=== PATIENT | female | born 1965 | race Caucasian/White ===

== ENCOUNTER 2017-12-12 11:05 | Emergency (ER) | payer SELFPAY ==
[2017-12-12] MEDS ORDERED: HUMULIN R 100 UNIT/ML VIAL SC ONE (11:06)
[2017-12-12] MEDS ORDERED: 0.9 % SODIUM CHLORIDE 1,000 ML BAG IV ONE (11:23)
[2017-12-12] MEDS ORDERED: ONDANSETRON HCL IV 4 MG/2 ML VIAL IV ONE (11:23)
[2017-12-12 11:33] LABS: HEMATOCRIT 43.9 % (35.0-47.0); MEAN CELL VOLUME 94.8 fl (81-97); MEAN CORPUSCULAR HEMOGLOBIN 30.2 pg (27-33); MEAN CORPUSCULAR HGB CONC 31.9 g/dl (32-36); MEAN PLATELET VOLUME 11.4 fl (7.4-10.4); PLATELET COUNT 327 K/uL (130-400); RED BLOOD COUNT 4.63 M/uL (3.80-5.40); RED CELL DISTRIBUTION WIDTH 14.5 % (11.5-14.5)
--- NOTE | 2017-12-12 11:33 | Emergency Department Record ---
History of Present Illness - General Chief complaint: Hypergylcemia Stated complaint: NO INSULIN SINCE MONDAY Time Seen by Provider: 12/12/17 11:12 Source: Patient, Family Mode of Arrival: Wheelchair Limitations: No limitations - History of Present Illness Initial comments: The patient is here due to not feeling well since last night. She is an Insulin dependent Diabetic and ran out of her Insulin 3 days ago. Last evening she has the onset of nausea, vomiting, and loose stools. She also is having some upper AP and back pain at times. The patient did take her blood sugar this AM and it read "high". She has had some ELIOT with the nausea and vomiting but no CP or RICCI. MD Complaint: Generalized weakness Onset/Timin -: Days(s) Severity: Severe Severity scale (1-10): 9 Quality: Sharp Consistency: Constant Improves with: None Worsens with: None Associated Symptoms: Loss of appetite, Nausea/vomiting, Shortness of breath - Related Data Home Medications Medication Instructions Recorded Confirmed Last Taken Dapagliflozin Propanediol [Farxiga] 5 mg PO DAILY 12/12/17 12/12/17 Unknown Insulin Aspart [Novolog Flexpen] 1 unit SQ DAILY 12/12/17 12/12/17 Unknown Insulin Degludec [Tresiba 1 unit SQ DAILY 12/12/17 12/12/17 Unknown Flextouch U-200] Propranolol HCl [Propranolol HCl 120 mg PO DAILY 12/12/17 12/12/17 Unknown ER] Simvastatin 20 mg PO DAILY 12/12/17 12/12/17 Unknown Allergies Allergy/AdvReac Type Severity Reaction Status Date / Time Sulfa (Sulfonamide Allergy HIVES Verified 12/12/17 11:21 Antibiotics) Travel Screening - Travel/Exposure Within Last 30 Days Have you traveled within the last 30 days?: No Review of Systems Constitutional: Denies: Chills, Fever Eyes: Denies: Eye discharge ENT: Denies: Congestion Respiratory: Reports: Dyspnea. Denies: Cough Cardiovascular: Denies: Arrhythmia, Chest pain Endocrine: Reports: Fatigue Gastrointestinal: Reports: Abdominal pain, Diarrhea, Nausea, Vomiting Genitourinary: Denies: Dysuria Musculoskeletal: Reports: Back pain Skin: Denies: Bruising Neurological: Reports: Abnormal gait Past Medical History - SOCIAL HISTORY Smoking Status: Current every day smoker Alcohol Use: Rare Drug Use: None - RESPIRATORY Hx Respiratory Disorders: No - CARDIOVASCULAR Hx Cardio Disorders: No - NEURO Hx Neuro Disorders: No - GI Hx GI Disorders: No - Hx Genitourinary Disorders: No - ENDOCRINE Hx Endocrine Disorders: Yes Hx Diabetes: Yes (Type 2) - MUSCULOSKELETAL Hx Musculoskeletal Disorders: No - PSYCH Hx Psych Problems: No - HEMATOLOGY/ONCOLOGY Hx Hematology/Oncology Disorders: No Family Medical History Any Significant Family History?: No Physical Exam - General General Appearance: Alert, Cooperative, Mild distress (due to fast breathing and not feeling well.) - Head Head exam: Atraumatic, Normocephalic - Eye Eye exam: Normal appearance, PERRL, EOMI - Neck Neck exam: Normal inspection, Full ROM. negative: Tenderness - Respiratory Respiratory exam: Normal lung sounds bilaterally. negative: Respiratory distress - Cardiovascular Cardiovascular Exam: Regular rate, Normal rhythm, Normal heart sounds - GI/Abdominal GI/Abdominal exam: Soft, Tenderness (There is mild upper abdominal tenderness.) . negative: Rebound, Rigid - Extremities Extremities exam: Normal inspection, Full ROM, Normal capillary refill. negative: Tenderness - Neurological Neurological exam: Alert. negative: Altered, Motor sensory deficit - Skin Skin exam: negative: Rash Course Vital Signs 12/12/17 11:07 Pulse Rate 85 Respiratory 28 H Rate Blood Pressure 138/60 Pulse Ox 100 - Reevaluation(s) Reevaluation #1: The patient is doing a little better at this time. Her breathing has slightly slowed and she is more comfortable. I did discuss the fact she is in severe DKA and will need an ICU admission. The patient and fiance did pick [facility] for admission so we will contact them. 12/12/17 11:58 Reevaluation #2: The patient is doing a little better and appears more comfortable. I did discuss the case with Dr. Robins in the ICU at [facility] and he is aware of the transfer. I also did discuss the case with Dr. Light for [facility] and he does accept the patient for admission. Per Dr. Robins we will decrease her IVF to 500cc's/hr and lower her Insulin drip to 2 unis/hr. We also will push 2 amps of Bicarb slowly. 12/12/17 12:24 Reevaluation #3: The patient continues to continually slowly improve. We will order a repeat BMP at this time. 12/12/17 13:24 Medical Decision Making - Management Options MDM Management: Additional Work-up Planned (e.g. ADM/Transfer/OP Study) - Data Complexity MDM Data: Labs Ordered and/or Reviewed, X-Ray Ordered and/or Reviewed - Lab Data Result diagrams: 12/12/17 11:20 12/12/17 13:25 - EKG Data -: EKG Interpreted by Me EKG: Abnormal EKG (Peaked T waves. Neg for ischemia.) - Radiology Data Radiology results: Report reviewed (CXR: Neg) Critical Care Time Critical Care Time: Yes Total Critical Care Time: 50 Disposition Disposition: Transfer Clinical Impression: DKA (diabetic ketoacidoses) Qualifiers: Diabetes mellitus type: other specified (including XAVI) Diabetes mellitus complication detail: without coma Qualified Code(s): E13.10 - Other specified diabetes mellitus with ketoacidosis without coma Disposition: Acute Care Hospital Transfer Transfer To: [facility] Reason For Transfer: ICU Accepting Physician: Kuldeep Time Discussed w/Accepting Physician: 12:27 Condition: (2) Stable Forms: Patient Portal Access Time of Disposition: 12:27 Quality - Quality Measures Quality Measures: N/A - Blood Pressure Screening View Details: Yes Does Patient Have Any of the Following: No Blood Pressure Classification: Normal BP Reading Systolic Measurement: 98 Diastolic Measurement: 60 Screening for High Blood Pressure: < Normal BP, F/U Not Required > [G8783]
[2017-12-12 11:37] LABS: WHITE BLOOD COUNT W/O DIFF 22.1 K/uL (4.2-12.2)
[2017-12-12 11:46] LABS: BLOOD UREA NITROGEN 27 mg/dL (6-20); EST GLOMERULAR FILTRATION RATE 28 mL/min; TOTAL PROTEIN 7.7 g/dL (6.6-8.7)
[2017-12-12 11:51] LABS: ALBUMIN 4.6 g/dL (4.0-5.0); ALKALINE PHOSPHATASE 118 U/L (35-104); ALT/SGPT 20 U/L (<33); AST/SGOT 17 U/L (10.0-35.0); LIPASE 69 U/L (13-60)
[2017-12-12] MEDS ORDERED: HUMULIN R 100 UNIT/ML VIAL IV ONE (11:51)
[2017-12-12] MEDS ORDERED: 0.9 % SODIUM CHLORIDE 1000ML 1,000 ML IV ONE ×2 (11:52→12:20)
[2017-12-12 11:53] LABS: ACETONE,SERUM POSITIVE (NEGATIVE)
[2017-12-12 11:54] LABS: BILIRUBIN,DIRECT < 0.2 mg/dL (0-0.3)
[2017-12-12] MEDS ORDERED: INSULIN REGULAR, HUMAN 100 UNIT in 0.9 % SODIUM CHLORIDE 100ML 100 ML IV SCH ×4 (12:00→12:30)
[2017-12-12 12:06] LABS: GLUCOSE,RANDOM 857 mg/dL (74-109)
[2017-12-12 12:07] LABS: CREATINE PHOSPHOKINASE 68 U/L (26-192)
[2017-12-12 12:08] LABS: CKMB 1.6 ng/mL (<3.77)
[2017-12-12] MEDS ORDERED: SODIUM BICARBONATE 50MEQ SYRINGE IVP ONE ×2 (12:16→12:17)
[2017-12-12 13:16] LABS: URINE APPEARANCE CLEAR; URINE BILIRUBIN NEGATIVE (NEGATIVE); URINE BLOOD SMALL (NEGATIVE); URINE COLOR YELLOW; URINE LEUKOCYTE ESTERASE NEGATIVE (NEGATIVE); URINE NITRITE NEGATIVE (NEGATIVE); URINE PROTEIN TRACE (NEGATIVE); URINE UROBILINOGEN 0.2 E.U./dL (0.20 - 1.00)
[2017-12-12 13:22] LABS: URINE GLUCOSE (UA) >=1000 mg/dL (NEGATIVE); URINE KETONE 80 mg/dL (NEGATIVE)
[2017-12-12 13:25] LABS: URINE EPITHELIAL CELLS 0 - 2 (FEW); URINE RBC 0 - 2 (NONE SEEN); URINE WBC NONE SEEN (0-2/hpf)
[2017-12-12 14:06] LABS: CREATININE 1.6 mg/dL (0.5-0.9)
== END 2017-12-12 13:55 | disposition short-term general hospital (02) ==
LOC: ER 11:05
DX: E09.10 Drug or chemical induced diabetes mellitus with ketoacidosis without coma (principal); T38.3X6A Underdosing of insulin and oral hypoglycemic [antidiabetic] drugs, initial encounter; R11.2 Nausea with vomiting, unspecified; R06.02 Shortness of breath; R10.10 Upper abdominal pain, unspecified; R53.1 Weakness; R19.7 Diarrhea, unspecified; M54.9 Dorsalgia, unspecified; Z79.4 Long term (current) use of insulin; F17.210 Nicotine dependence, cigarettes, uncomplicated
CPT/HCPCS: 99291 ×2; 96365; 96366; 96375; 96361; 99292; 82550; 82800; 83690; 80076; 82553; 80048; 81001; 82009; 84484; 85027; 71045; J2405; J1815; J7030

== ENCOUNTER 2018-11-10 16:53 | Emergency (ER) | payer OTHER ==
--- NOTE | 2018-11-10 16:59 | Emergency Department Record ---
History of Present Illness - General Chief complaint: Extremity Problem Stated complaint: LT ANKLE RT KNEE INJURY Time Seen by Provider: 11/10/18 16:57 Source: Patient, RN notes reviewed Mode of Arrival: Wheelchair - History of Present Illness Initial comments: step in a hole at work yesterday and she has pain in the right knee and left ankle. Onset/Timin -: Days(s) - Related Data Previous Rx's Medication Instructions Recorded Hydrocodone/Acetaminophen [[place] 1 each PO Q6HR #12 tablet 11/10/18 5-325 Tablet] Allergies Allergy/AdvReac Type Severity Reaction Status Date / Time Sulfa (Sulfonamide Allergy HIVES Verified 11/10/18 17:00 Antibiotics) Review of Systems Reviewed: No additional complaints except as noted below Constitutional: Reports: As per HPI. Denies: Chills, Fever, Malaise, Night sweats, Weakness, Weight change Eyes: Reports: As per HPI. Denies: Eye discharge, Eye pain, Photophobia, Vision change ENT: Reports: As per HPI. Denies: Congestion, Dental pain, Ear pain, Epistaxis, Hearing loss, Throat pain Respiratory: Reports: As per HPI. Denies: Cough, Dyspnea, Hemoptysis, Stridor, Wheezes Cardiovascular: Reports: As per HPI. Denies: Arrhythmia, Chest pain, Dyspnea on exertion, Edema, Murmurs, Orthopnea, Palpitations, Paroxysmal nocturnal dyspnea, Rheumatic Fever, Syncope Endocrine: Reports: As per HPI. Denies: Fatigue, Heat or cold intolerance, Polydipsia, Polyuria Gastrointestinal: Reports: As per HPI. Denies: Abdominal pain, Constipation, Diarrhea, Hematemesis, Hematochezia, Melena, Nausea, Vomiting Genitourinary: Reports: As per HPI. Denies: Abnormal menses, Discharge, Dyspareunia, Dysuria, Frequency, Hematuria, Incontinence, Retention, Urgency Musculoskeletal: Reports: As per HPI, Arthralgia, Other (right ankle and left ankle pain). Denies: Back pain, Gout, Joint swelling, Myalgia, Neck pain Skin: Reports: As per HPI. Denies: Bruising, Change in color, Change in hair/nails, Lesions, Pruritus, Rash Neurological: Reports: As per HPI. Denies: Abnormal gait, Confusion, Headache, Numbness, Paresthesias, Seizure, Tingling, Tremors, Vertigo, Weakness Psychiatric: Reports: As per HPI. Denies: Anxiety, Auditory hallucinations, Depression, Homicidal thoughts, Suicidal thoughts, Visual hallucinations Hematological/Lymphatic: Reports: As per HPI. Denies: Anemia, Blood Clots, Easy bleeding, Easy bruising, Swollen glands Past Medical History - SOCIAL HISTORY Smoking Status: Current every day smoker Drug Use: None - RESPIRATORY Hx Respiratory Disorders: No - CARDIOVASCULAR Hx Cardio Disorders: No - NEURO Hx Neuro Disorders: No - GI Hx GI Disorders: No - Hx Genitourinary Disorders: No - ENDOCRINE Hx Endocrine Disorders: Yes Hx Diabetes: Yes (Type 2) - MUSCULOSKELETAL Hx Musculoskeletal Disorders: No - PSYCH Hx Psych Problems: No - HEMATOLOGY/ONCOLOGY Hx Hematology/Oncology Disorders: No Physical Exam - General General Appearance: Alert, Oriented x3, Cooperative, No acute distress - Head Head exam: Normal inspection - Eye Eye exam: Normal appearance, PERRL Pupils: Normal accommodation - ENT ENT exam: Normal exam, Mucous membranes moist, Normal external ear exam, Normal orophraynx, TM's normal bilaterally Ear exam: Normal external inspection. negative: External canal tenderness Nasal Exam: Normal inspection. negative: Discharge, Sinus tenderness Mouth exam: Normal external inspection, Tongue normal Teeth exam: Normal inspection. negative: Dental caries Throat exam: Normal inspection. negative: Tonsillar erythema, Tonsillar exudate - Neck Neck exam: Normal inspection, Full ROM. negative: Tenderness - Respiratory Respiratory exam: Normal lung sounds bilaterally. negative: Respiratory distress - Cardiovascular Cardiovascular Exam: Regular rate, Normal rhythm, Normal heart sounds - GI/Abdominal GI/Abdominal exam: Soft, Normal bowel sounds. negative: Tenderness - Rectal Rectal exam: Deferred - exam: Deferred - Extremities Extremities exam: Normal capillary refill, Tenderness (pain in the right knee and left ankle) - Back Back exam: Reports: Normal inspection, Full ROM. Denies: Muscle spasm, Rash noted, Tenderness - Neurological Neurological exam: Alert, Normal gait, Oriented X3, Reflexes normal - Psychiatric Psychiatric exam: Normal affect, Normal mood - Skin Skin exam: Dry, Intact, Normal color, Warm Medical Decision Making - Data Complexity MDM Data: X-Ray Ordered and/or Reviewed (fibular fracture, knee negative) Disposition Clinical Impression: Right knee sprain Qualifiers: Encounter type: initial encounter Involved ligament of knee: medial collateral ligament Qualified Code(s): S83.411A - Sprain of medial collateral ligament of right knee, initial encounter Ankle fracture Qualifiers: Encounter type: initial encounter Fracture type: closed Laterality: left Qualified Code(s): S82.892A - Other fracture of left lower leg, initial encounter for closed fracture Disposition: Home, Self-Care Condition: (1) Good Instructions: Ankle Fracture (ED), Knee Sprain (ED) Additional Instructions: motrin 800 mg three times a day Prescriptions: Hydrocodone/Acetaminophen [Hickory 5-325 Tablet] 1 each PO Q6HR #12 tablet Forms: Patient Portal Access Time of Disposition: 17:34 Quality - Quality Measures Quality Measures: N/A - Blood Pressure Screening Does Patient Have Any of the Following: No Blood Pressure Classification: Normal BP Reading Systolic Measurement: 112 Diastolic Measurement: 74 Screening for High Blood Pressure: < Normal BP, F/U Not Required > [G8783]
[2018-11-10] MEDS ORDERED: IBUPROFEN 600 MG TABLET PO ONE (17:04)
[2018-11-10] MEDS ORDERED: IBUPROFEN 400 MG TABLET PO ONE (17:22)
[2018-11-10] MEDS ORDERED: HYDROCODONE/APAP 5/325MG TABLET PO ONE (17:32)
--- NOTE | 2018-11-12 13:27 | RADIOLOGY REPORT ---
EXAM: LEFT ANKLE, THREE VIEWS HISTORY: LATERAL ANKLE PAIN AND SWELLING STATUS POST FALL. TECHNIQUE: Three views of the left ankle were obtained. Comparison: None. Encounter: Initial. FINDINGS: There is a nondisplaced transverse fracture within the lateral malleolus. There is overlying soft tissue swelling. Mild soft tissue swelling is also present medially. The ankle mortise is intact. On the lateral view there is the suggestion for a tiny avulsed fragment along the dorsum of the navicular adjacent to the talonavicular joint. IMPRESSION: 1. NONDISPLACED TRANSVERSE FRACTURE OF THE LATERAL MALLEOLUS. 2. SUSPECTED TINY AVULSION FRACTURE ALONG THE DORSUM OF THE NAVICULAR. JOB NUMBER: [id number] MTDD
--- NOTE | 2018-11-12 13:48 | RADIOLOGY REPORT ---
EXAM: RIGHT KNEE, FOUR VIEWS HISTORY: RIGHT KNEE PAIN STATUS POST FALL. TECHNIQUE: Four views of the right knee were obtained. Comparison: None. Encounter: Initial. FINDINGS: The bones appear intact. There is no visible acute fracture, dislocation, or joint effusion. Minor arthritic changes are present within the medial and patellofemoral compartments. IMPRESSION: NO ACUTE RIGHT KNEE PATHOLOGY. JOB NUMBER: [id number] MTDD
== END 2018-11-10 17:56 | disposition home or self-care (01) ==
LOC: ER 16:53
DX: S82.65XA Nondisplaced fracture of lateral malleolus of left fibula, initial encounter for closed fracture (principal); S83.411A Sprain of medial collateral ligament of right knee, initial encounter; X50.0XXA Overexertion from strenuous movement or load, initial encounter; Y99.0 Civilian activity done for income or pay; E11.9 Type 2 diabetes mellitus without complications
CPT/HCPCS: 99284